=== PATIENT | male | born 1955 | race Caucasian/White ===

== ENCOUNTER → 2019-11-29 | Outpatient (CLI) | payer OTHER ==
[~2019-11-29] MED LIST: ACID CONTROLLER20 MG PO; ATORVASTATIN CA20 MG PO; CENTRUM SILVER1 EAC7 PO; COZAAR 25 MG TA25 M1 PO; ESZOPICLONE2 MG PO; FISH OIL 1,0001 EAC9 PO; GLUCOSAMINE CH1 EAC2 PO; MELOXICAM15 MG PO; OXYCODONE HCL 55 MG PO; QUETIAPINE FUM100 MG PO; ROPINIROLE HCL0.5 MG PO; SAW PALMETTO450 MG PO; XARELTO10 MG PO
== END ==
LOC: M.MRI 07:30
PROVIDERS: ATTEND Orthopaedic Surgery
DX: M17.12 Unilateral primary osteoarthritis, left knee (principal)

== ENCOUNTER → 2019-12-10 | Outpatient (CLI) | payer OTHER ==
[~2019-12-10] MED LIST changes: -OXYCODONE HCL 55 MG PO; -XARELTO10 MG PO
[2019-12-10 10:30] LABS: HEMATOCRIT 40.6 % (42.0-52.0); HEMOGLOBIN 13.8 gm/dL (14.0-18.0); MCH 33.8 pg (26.0-34.0); MCHC 34.1 g/dL (28.0-37.0); MCV 99.2 fL (80.0-100.0); MPV 6.1 fl. (7.2-11.1); RBC 4.09 mil/uL (4.50-6.00); RDW-CV 12.1 % (10.5-14.5); WBC 4.7 thou/uL (4.0-11.0)
[2019-12-10 10:30] LABS: URINE BILIRUBIN NEGATIVE (Negative); URINE BLOOD NEGATIVE (Negative); URINE CLARITY CLEAR; URINE COLOR YELLOW; URINE GLUCOSE-RANDOM NEGATIVE (Negative); URINE KETONES NEGATIVE (Negative); URINE LEUKOCYTES-REFLEX NEGATIVE (Negative); URINE NITRITE-REFLEX NEGATIVE (Negative); URINE PROTEIN NEGATIVE (Negative); URINE UROBILINOGEN 0.2 E.U./dl (0.2-1.0)
[2019-12-10 10:36] LABS: PROTIME 10.2 Seconds (9.20-11.50)
[2019-12-10 10:41] LABS: ALBUMIN 3.9 g/dL (3.4-5.0); CALCIUM 9.2 mg/dL (8.5-10.1); POTASSIUM 4.9 mmol/L (3.5-5.1); TOTAL BILIRUBIN 0.9 mg/dL (<0.1-1.0); TOTAL PROTEIN 7.6 g/dL (6.4-8.2)
--- NOTE | 2019-12-11 13:42 | EKG ---
[place] [address] ELECTROCARDIOGRAM REPORT Name: ZHANNA SHIN Room: [employer]#: [id number] Admission: 12/10/19 Attend Phys: Fredis Gan, Discharge: Date of : 55 Date of Service: 12/10/19 1009 Report #: [id number] THIS REPORT FOR: //name// [facility] Test Date: 2019-12-10 Test Time: 10:09:05 Pat Name: ZHANNA CHACKOLANDAVE Department: Room: Gender: [employer] E[employer]: : 1955 Requested By: Fredis Gan Order Number: [id number] Reading MD: Zhanna Flannery Measurements Intervals [place] Rate: 84 P: 34 DC: 164 QRS: 19 QRSD: 99 T: 39 QT: 371 QTc: 439 Interpretive Statements Sinus rhythm No previous ECG available for comparison Electronically Signed On 12-11-2019 13:41:55 CDT by Zhanna Flannery [email or web address] <ELECTRONICALLY SIGNED> By: Zhanna Flannery MD, FACC 12/11/19 1341 1009 1009 Zhanna Flannery MD, FACC /EPI
== END ==
LOC: M.LAB 08:57
PROVIDERS: ATTEND Orthopaedic Surgery
DX: Z01.812 Encounter for preprocedural laboratory examination (principal); Z20.828 Contact with and (suspected) exposure to other viral communicable diseases

== ENCOUNTER 2019-12-17 09:51 | Inpatient (IN) | payer OTHER ==
[~2019-12-17] VITALS: Ht 185.4 cm; Wt 104.3 kg
--- NOTE | ~2019-12-17 | OP ---
[facility] [address] [place] [address] OPERATIVE REPORT Name: ZHANNA SHIN Room: [address] M.R.#: [id number] Admission: 12/17/19 Attend Phys: Angélica Grey Discharge: Date of : 55 Report #: [id number] THIS REPORT FOR: //name// cc: Mike East MD, Matthew D MD ~ CC: Sid Ford DATE OF SERVICE: 12/17/2019 PREOPERATIVE DIAGNOSIS: Left knee osteoarthritis. POSTOPERATIVE DIAGNOSIS: Left knee osteoarthritis. PROCEDURE: Left total knee arthroplasty. SURGEON: Fredis Gan II, DO COAT PADDER: BENY Turner. ANESTHESIA: General endotracheal. ESTIMATED BLOOD LOSS: 50 mL. ANTIBIOTICS: Ancef preoperatively. DRAINS: Hemovac. COMPLICATIONS: None. CONDITION OF THE PATIENT: Stable to recovery room. IMPLANTS: Listed in operative record and progress note. BRIEF HISTORY: The patient was seen in the preoperative area. Preoperative H and P was performed. Site was marked, questions were answered. Risks and benefits were discussed with the patient in detail about surgery. The patient wished to proceed, assuming all risks. DESCRIPTION OF PROCEDURE: The patient was taken to the operative suite and placed supine on the operating table, given appropriate anesthesia. A well-padded tourniquet was applied to the upper thigh, which was inflated to 300 mmHg after gravity exsanguination. The operative knee was sterilely prepped and draped. Surgery began by midline incision. [place] [address] OPERATIVE REPORT Name: ZHANNA SHIN Room: [address] [place] .R.#: [id number] Admission: 12/17/19 Attend Phys: Angélica Grey Discharge: Date of : 55 Report #: [id number] subcutaneous tissues. A medial parapatellar arthrotomy was performed and carried down to bone. Patella was then everted and excess soft tissue removed from around the femur. Femoral cutting block was then applied, checked with drop huong of rotational alignment, pinned in appropriate position and appropriate cuts were made. A 4-in-1 cutting block was then applied, checked for rotational alignment, pinned in appropriate position and appropriate cuts were made. The tibia was then exposed. Excess meniscus was removed. Retractor was placed on collateral ligaments. Tibial cutting block was then applied, pinned in appropriate position, checked with drop huong for rotational alignment and slope and appropriate cut was made. The tibial bone was removed. Tibial base plate was then applied, checked for rotational alignment with the drop huong and pinned in appropriate position. The femur was then applied and box cut was reamed. This was then trialed with appropriate spacer, which showed excellent fit and fill and excellent stability of knee through all range of motion. The patella was then reamed in appropriate fashion and sized to appropriate size. Three peg holes were drilled and it was then trialed and showed excellent flexion, extension, excellent tracking of the patella within the groove. These trials were removed. The tibia was punched in appropriate fashion. Bone ends were cleansed with Pulsavac irrigation and cement was mixed and applied to final implants. These were then malleted into position and held the knee in extension and compressed to allow cement to cure. After it cured, excess was removed using a Arley and osteotome. The wound was then copiously irrigated and the final spacer was then malleted into position. The tourniquet was deflated. Hemostasis was maintained with electrocautery. Pain cocktail was injected. PRP gel sprayed throughout internal aspects of the knee. Medium Hemovac drain was applied. Capsule was closed with #2 FiberWire and #1 Vicryl in [id number] fashion. Skin was closed with 2-0 Vicryl and running 3-0 Monocryl. Dermabond and sterile dressing applied. Bean wrap and PolarCare applied. The patient transported to the recovery room in stable condition. Counts were correct throughout the procedure. By: [id number] Gan II, DO /nt
[2019-12-17 11:00] VITALS: BP 145/85
[2019-12-17 17:00] VITALS: BP 146/78
--- NOTE | 2019-12-17 17:57 | NUR ---
PT A&OX4 VSS. PT ARRIVED ON UNIT WITH ICE TO LEFT KNEE POST-OP. PT ON ROOM AIR. CO2 MONITOR IN PLACE. NO C/O PAIN AT THIS TIME. IV TO L WRIST PATENT, SL. DRESSING C/D/I. PT REMAINS CONTINENT OF B/B. PT RESTING IN ROOM WITH CALL IGHT IN REACH. SPOUSE AT BEDSIDE. WILL CONTINUE TO MONITOR
[2019-12-17 20:00] VITALS: BP 142/85
[2019-12-18 01:00] VITALS: BP 109/75
[2019-12-18 03:56] VITALS: BP 115/73
[2019-12-18 04:06] LABS: HEMATOCRIT 33.3 % (42.0-52.0); HEMOGLOBIN 11.3 gm/dL (14.0-18.0)
--- NOTE | 2019-12-18 07:35 | NUR ---
PATIENT SLEPT MOST OF THE NIGHT. IV FLUIDS ARE INFUSING AT 75 ML/HR. PATIENT WAS GIVEN PAIN MEDICINE ONCE THIS SHIFT. WILL CONTINUE TO MONITOR.
[2019-12-18 07:45] VITALS: BP 118/71
[2019-12-18] MEDS ORDERED: XARELTO10 MG PO (09:20)
[2019-12-18] MEDS ORDERED: OXYCODONE HCL 55 MG PO (09:20)
[2019-12-18 12:05] VITALS: BP 119/72
[2019-12-18 12:11] VITALS: BP 119/72
--- NOTE | 2019-12-18 12:21 | NUR ---
CM CALLED IN XARELTO PRESCRIPTION TO P[facility]ARM[facility]. COPAY IS $50 . WILL INFORM PT.
[2019-12-18 13:23] VITALS: BP 119/72
--- NOTE | 2019-12-18 13:36 | NUR ---
RECIEVED O.T. ORDERS. WILL DEFER TO P.T. AT THIS TIME. PLEASE ORDER FURTHER O.T. SERVICES IF NEEDED.
--- NOTE | 2019-12-18 14:05 | NUR ---
PT A&OX4 VSS. PT UP SBA W/WALKER AND GAIT BELT. IV TO LFA PATENT, DRESSING C/D/I, FLUIDS RUNNING AT 75ML/HOUR ORDERED. IV ABX CONTINUE THIS AM. PT REMAINS CONTINENT OF B/B. PRN PAIN MEDS ADMINISTERED PRIOR TO THERAPIES. PT SATTING >94% ON ROOM AIR. HEMOVAC REMOVED PER DR BRADLEY. IV DC'D PRIOR TO PT LEAVING UNIT. PT LEAVES UNIT IN W/C WITH NURSING STAFF. PERSONAL BELONGINGS AND CPM ACCOMPANY PT TO VEHICLE. PT STATES UNDERSTANDING OF DC INSTRUCTIONS, FAMILY PRESENT AT TIME OF EDUCATION.
--- NOTE | 2019-12-19 16:38 | NUR ---
LATE ENTRY FOR 12/17 AT 1400-CM SAW PT.AND SON,ZHANNA. PT.READY FOR DISCHARGE. PT.LIVES WITH . SHE WORKS SO ZHANNA WILL BE WITH HIM TO ASSIST NEEDED FOR SEVERAL DAYS UNTIL PT.FEELS COMFORTABLE STAYING ALONE. PT.HAS FWW FOR HOME USE. KNOWS TO TAKE CPM AND POLAR PACK HOME. HE SAID HE WOULD AFFORD COPAY OF $50 FOR XARELTO. HE CHOSE [facility] AND SIGNED VENDOR CHOICE FORM. ALEXA FAXED H&P,OP REPORT AND DISCHARGE SUMMARY WITH HH ORDERS TO [facility] [phone]. LACIE/[facility] CONFIRMED THEY RECEIVED ORDERS AND WILL START HH ON .
== END 2019-12-18 14:05 | disposition home health service (06) | DRG 470 ==
LOC: M.TBA 09:51 → M.ORTHSURG 09:51
PROVIDERS: Orthopaedic Surgery; ADMIT Internal Medicine; ATTEND Internal Medicine
PROC: 0SRD069 Replacement of Left Knee Joint with Oxidized Zirconium on Polyethylene Synthetic Substitute, Cemented, Open Approach (ICD-10-PCS; principal; 2019-12-17)
DX: M17.12 Unilateral primary osteoarthritis, left knee (principal); E78.00 Pure hypercholesterolemia, unspecified; I10 Essential (primary) hypertension; E78.5 Hyperlipidemia, unspecified; K21.9 Gastro-esophageal reflux disease without esophagitis; Z79.899 Other long term (current) drug therapy; Z72.89 Other problems related to lifestyle